=== PATIENT | female | born 1995 | race Caucasian/White ===

== ENCOUNTER → 2019-06-11 | Emergency (ER) | payer OTHER ==
[~2019-06-11] VITALS: Ht 170.2 cm; Wt 65.3 kg
== END | disposition left against medical advice (07) ==
LOC: ER 15:29
DX: O20.8 Other hemorrhage in early pregnancy (principal); Z34.01 Encounter for supervision of normal first pregnancy, first trimester

== ENCOUNTER → 2024-08-09 | Emergency (ER) | payer OTHER ==
[~2024-08-09] VITALS: Ht 162.6 cm; Wt 81.6 kg
== END | disposition home or self-care (01) ==
LOC: ER 12:51
DX: A74.9 Chlamydial infection, unspecified (principal); N39.9 Disorder of urinary system, unspecified